=== PATIENT | male | born 1970 | race Caucasian/White ===

== ENCOUNTER → 2019-01-27 15:49 | Outpatient (CLI) | payer BC, SELFPAY ==
[2019-01-27 17:59] LABS: CRP < 2.90 mg/L (0.0-3.0)
[2019-01-31 11:10] LABS: Endomysial Antibody IgA Negative (Negative); Immunoglobulin A 613 mg/dL (90-386); t-Transglutaminase IgA 2 U/mL (0-3)
== END ==
PROVIDERS: Family Provider Nurse Practitioner Primary Care; PCP Nurse Practitioner Primary Care; Referring Provider Internal Medicine Gastroenterology; Visit Provider Internal Medicine Gastroenterology
DX: R19.7 Diarrhea, unspecified (principal)
CPT/HCPCS: 36415; 82784; 83516; 86140; 86255

== ENCOUNTER → 2023-11-03 | Outpatient (CLI) | payer BC, SELFPAY ==
--- NOTE | 2023-11-03 12:08 | CT_ITS ---
STUDY: CT CHEST WITH CONTRAST REASON FOR EXAM: Male, 53 years old. SOB RADIATION DOSAGE (If Supplied By Facility): CTDIvol = ( 63.38 ) mGy, DLP = ( 1957.33 ) mGycm TECHNIQUE: Transaxial imaging was performed following intravenous administration of IV 77mL Isovue-[id number]. Cardiac over read examination. Individualized dose optimization techniques were used for this CT. COMPARISON: No relevant priors. FINDINGS: CHEST The lungs are normal. There is no demonstrated pleural abnormality. Mild degree of coronary artery calcification. Normal mediastinum. Normal hilar regions. Normal unenhanced pulmonary arteries. Normal aorta arch and descending thoracic aorta. Normal osseous structures. There is no demonstrated abnormality of the visualized upper abdomen. CT/Limited Chest CT Cardiac Only IMPRESSION: Mild degree of coronary artery calcification. Electronically Signed: Iglesia Chance MD at 15:29 EDT ,
[2023-11-03 12:26] VITALS: BP 139/83; PULSE 65; RESP 16; TEMP 36.6; O2SAT 98; BMI 43.2
[2023-11-03] MEDS: 0.9% Saline Lock 10 ML Syringe IV (12:30)
[2023-11-03 12:33] LABS: CREATININE FINGERSTICK 1.3 mg/dL (0.70-1.30); EGFR FINGERSTICK > 60.0000 mL/min (>60)
[2023-11-03 12:44] VITALS: BP 134/73; PULSE 64
[2023-11-03] MEDS: Nitroglycerin SL (ED/IMG/CATH) 0.4 MG TABLET SL (12:44)
[2023-11-03 13:00] VITALS: BP 134/73; PULSE 65; RESP 18
--- NOTE | 2023-11-04 13:20 | CCTA.WCONT ---
CCTA w/Cont Coronary Arteries Date of Study:: 11/03/23 Shortness of breath Coronary Calcium Scoring: High-resolution Computed Tomographic imaging of the chest was performed on [11/03/2023], with particular attention paid to the coronary arteries. Intravenous contrast agent was administered per protocol and images reconstructed and displayed. There was some motion artifact which was present reducing sensitivity for detection of significant occlusions LEFT MAIN CORONARY ARTERY: Arose from the left coronary cusp and bifurcating to left anterior descending artery and left circumflex artery with no significant stenosis present [] LEFT ANTERIOR DESCENDING CORONARY ARTERY: Medium size vessel with mid segment mild calcification and eccentric stenosis with mild atherosclerotic plaquing [] LEFT CIRCUMFLEX CORONARY ARTERY: No significant atherosclerotic plaquing noted [] RIGHT CORONARY ARTERY: Dominant vessel arises from the right coronary cusp with no significant atherosclerotic plaquing noted. Conclusion: Coronary CTA demonstrating mild calcification in the mid left anterior descending artery with mild eccentric plaquing noted.
== END | disposition home or self-care (01) ==
LOC: CT 12:06
PROVIDERS: PCP Nurse Practitioner Primary Care; Referring Provider Nurse Practitioner Family; Visit Provider Nurse Practitioner Family
DX: R06.02 Shortness of breath (principal); I51.9 Heart disease, unspecified
CPT/HCPCS: 75574; 76380; Q9967